=== PATIENT | female | born 2000 | race Caucasian/White ===

== ENCOUNTER 2019-07-04 18:17 | Emergency (ER) | payer MEDICAID ==
[~2019-07-04] VITALS: Ht 160 cm; Wt 62.6 kg
[2019-07-04 18:50] VITALS: BP_SYST 157
--- NOTE | 2019-07-04 18:53 | NUR ---
Patient to ER bed 05 to gown for evaluation. Side rails up.
--- NOTE | 2019-07-04 19:00 | NUR ---
Patient complains of neck pain for the last few hours. Per patient, she has hx of hyperthyroidism but has not seen her PCP. Pt denies difficulty swallowing, N/V, fever. No other injuries/complaints per patient or noted.
--- NOTE | 2019-07-04 19:05 | NUR ---
ER Dr. Mcgee at bedside examining patient.
[2019-07-04] MEDS ORDERED: KETOROLAC TROMETHAMINE 60 MG/2 ML VIAL IM ONE (19:15)
[2019-07-04 19:33] LABS: BASOPHILS % (AUTO) 0.6 % (0.0-2.0); EOSINOPHILS # (AUTO) 0.1 K/uL (0.0-0.4); EOSINOPHILS % (AUTO) 0.9 % (0.0-4.0); HEMOGLOBIN 12.1 g/dL (12.0-16.0); LYMPHOCYTES % (AUTO) 43.3 % (20.5-51.5); MEAN CORPUSCULAR HEMOGLOBIN 22 pg (27-31); MEAN CORPUSCULAR HGB CONC 32 % (32-36); MEAN CORPUSCULAR VOLUME 71 fL (79.0-98.0); MONOCYTES # (AUTO) 0.8 K/uL (0.0-1.0); MONOCYTES % (AUTO) 11.4 % (1.7-9.3); NEUTROPHILS # (AUTO) 3.1 K/uL (1.8-7.7); NEUTROPHILS % (AUTO) 43.8 % (40.0-70.0); PLATELET COUNT (AUTO) 198 K/uL (130-430); RED BLOOD CELL COUNT(AUTO) 5.38 MIL/uL (4.2-6.2); RED CELL DISTRIBUTION WIDTH 14.1 % (9.0-15.0)
[2019-07-04 19:44] LABS: ANION GAP 10 (5-15); CALCIUM 9.5 mg/dL (8.4-11.0); CHLORIDE 103 mmol/L (98-107); GLUCOSE 106 mg/dL (70-99); POTASSIUM 4.1 mmol/L (3.5-5.1); SODIUM SERUM 136 mmol/L (136-145); UREA NITROGEN, BLOOD 10 mg/dL (8-21)
[2019-07-04 19:47] LABS: GFR AFRICAN AMERICAN 361 mL/min (>90)
[2019-07-04 19:58] LABS: ALANINE AMINOTRANSFERASE 24 U/L (12-78); ALBUMIN 3.8 g/dL (3.4-4.8); ASPARTATE AMINOTRANSFERASE 24 U/L (10-37); FREE T4 (FREE THYROXINE) 6.2 ng/dl (0.8-1.5); TOTAL BILIRUBIN 0.3 mg/dL (0.0-1.0)
[2019-07-04 20:21] LABS: THYROID STIMULATING HORMONE < 0.01 uIu/mL (0.36-3.74)
[2019-07-04 21:08] VITALS: BP_SYST 135
--- NOTE | 2019-07-04 21:08 | NUR ---
Patient given written and verbal discharge instructions and verbalizes understanding. ER MD discussed with patient the results and treatment provided. Patient in stable condition. ID arm band removed. Rx of Naprosyn given. Patient educated on pain management and to follow up with PMD. Pain Scale 0. Opportunity for questions provided and answered. Medication side effect fact sheet provided.
--- NOTE | 2019-07-05 02:58 | NUR ---
Note farzanehone in EDM - 07/05/19 at 0258 by [email or web address] Patient given written and verbal discharge instructions and verbalizes understanding. ER discussed with patient the results and treatment provided. Patient in stable condition. ID arm band removed. Rx of Naprosyn given. Patient educated on pain management and to follow up with PMD. Pain Scale 0. Opportunity for questions provided and answered. Medication side effect fact sheet provided.
== END 2019-07-04 21:08 | disposition home or self-care (01) ==
LOC: SED 18:17
DX: E05.90 Thyrotoxicosis, unspecified without thyrotoxic crisis or storm (principal)
CPT/HCPCS: 36415; 76536; 80053; 84439; 84443; 85025; 96372; 99284; J1885

== ENCOUNTER 2019-09-21 17:37 | Emergency (ER) | payer MEDICAID ==
[~2019-09-21] VITALS: Ht 160 cm; Wt 65.3 kg
[2019-09-21 17:50] VITALS: BP_SYST 140
--- NOTE | 2019-09-21 18:06 | NUR ---
Placed in room 04. Placed on electronic device monitor, blood pressure machine and pulse oximeter. To gown for exam. Side rails up. Report given to SPENCER Funez.
--- NOTE | 2019-09-21 18:13 | NUR ---
Note kailee in [facility] - 09/21/19 at 1813 by [email or web address] Placed in room 04 . Placed on monitoring analyst, blood pressure machine and pulse oximeter. To gown for exam. Side rails up. Report given to Dee Dee PALMER.
--- NOTE | 2019-09-21 18:45 | NUR ---
Patient presents to ER C/O pelvic pain . Patient A&Ox4, ambulatory to ER, skin pink and warm, afebrile, pain 9/10 left side pelvic pain, denies N/V/D. Patient states pain x5days, seen at [facility] on Wednesday, no treatment plan given.
--- NOTE | 2019-09-21 19:25 | NUR ---
ER Dr. Lopez at bedside examining patient.
--- NOTE | 2019-09-21 19:30 | NUR ---
Report given to Rosalio PALMER
--- NOTE | 2019-09-21 20:00 | NUR ---
Pt provided urine sample. Dipped, Negative HCG, sent to Lab. informed.
[2019-09-21 20:07] LABS: BASOPHILS % (AUTO) 0.2 % (0.0-2.0); EOSINOPHILS % (AUTO) 0.1 % (0.0-4.0); HEMATOCRIT 36.5 % (36-48); HEMOGLOBIN 11.6 g/dL (12.0-16.0); LYMPHOCYTES # (AUTO) 2.3 K/uL (1.0-5.5); LYMPHOCYTES % (AUTO) 18.1 % (20.5-51.5); MEAN CORPUSCULAR HEMOGLOBIN 22 pg (27-31); MEAN CORPUSCULAR HGB CONC 32 % (32-36); MEAN CORPUSCULAR VOLUME 70 fL (79.0-98.0); MONOCYTES # (AUTO) 1.7 K/uL (0.0-1.0); MONOCYTES % (AUTO) 13.3 % (1.7-9.3); NEUTROPHILS # (AUTO) 8.5 K/uL (1.8-7.7); NEUTROPHILS % (AUTO) 68.3 % (40.0-70.0); PLATELET COUNT (AUTO) 295 K/uL (130-430); RED BLOOD CELL COUNT(AUTO) 5.21 MIL/uL (4.2-6.2); WHITE BLOOD COUNT (AUTO) 12.5 K/uL (4.8-10.8)
[2019-09-21 20:23] LABS: CALCIUM 9.5 mg/dL (8.4-11.0); CREATININE 0.43 mg/dL (0.55-1.30); POTASSIUM 3.7 mmol/L (3.5-5.1)
[2019-09-21 20:36] LABS: ALBUMIN 3.2 g/dL (3.4-4.8); TOTAL BILIRUBIN 0.4 mg/dL (0.0-1.0)
[2019-09-21 21:13] LABS: BILIRUBIN,URINE NEGATIVE (NEGATIVE); BLOOD, URINE NEGATIVE (NEGATIVE); COLOR,URINE YELLOW (YELLOW); GLUCOSE,URINE NEGATIVE (NEGATIVE); KETONES,URINE TRACE (NEGATIVE); LEUKOCYTE ESTERASE ,URINE TRACE (NEGATIVE); NITRITE, URINE NEGATIVE (NEGATIVE); PROTEIN URINE NEGATIVE (NEGATIVE); UROBILINOGEN,URINE 0.2 (0.2-1.0)
[2019-09-21] MEDS ORDERED: NACL 0.9% 1,000 ML IV ONE (21:15)
[2019-09-21 21:41] LABS: CLARITY/URINE HAZY (CLEAR)
--- NOTE | 2019-09-21 21:51 | NUR ---
# 20 gauge angiocath placed to LAC. Use of asceptic technique. Opsite placed over site. Blood return noted. Blood for lab drawn from site. Flushed with 10 cc of normal saline. No evidence of infiltration noted. Patient tolerated well.
[2019-09-21 22:43] LABS: BACTERIA,URINE FEW /HPF (None Seen); MUCUS,URINE 3+ /LPF (None Seen); RBC,URINE 0-3 /HPF (0-3)
[2019-09-21 23:00] VITALS: BP_SYST 133
--- NOTE | 2019-09-21 23:00 | NUR ---
Patient given written and verbal discharge instructions and verbalizes understanding. ER MD discussed with patient the results and treatment provided. Patient in stable condition. ID arm band removed. IV catheter removed intact and dressing applied, no active bleeding. Rx of Keflex and tramadol given. Patient educated on pain management and to follow up with PMD. Pain Scale 0/10. Opportunity for questions provided and answered. Medication side effect fact sheet provided.
== END 2019-09-21 23:00 | disposition home or self-care (01) ==
LOC: SED 17:37
DX: E87.1 Hypo-osmolality and hyponatremia (principal); E86.0 Dehydration; I88.9 Nonspecific lymphadenitis, unspecified; E03.9 Hypothyroidism, unspecified
CPT/HCPCS: 36415; 80053; 81000; 81025; 85025; 87086; 96360; 99283; J7030

== ENCOUNTER 2019-11-05 19:07 | Emergency (ER) | payer MEDICAID ==
[~2019-11-05] VITALS: Ht 160 cm; Wt 63.0 kg
[2019-11-05 19:07] VITALS: BP_SYST 125
[2019-11-05 20:30] LABS: STREPTOCOCCUS A SCREEN (RAPID) NEGATIVE (NEGATIVE)
[2019-11-05 20:38] LABS: INFLUENZA A&B ANTIGEN SCREEN NEGATIVE FOR A & B (NEGATIVE)
[2019-11-05] MEDS ORDERED: KETOROLAC TROMETHAMINE 30 MG VIAL IM ONE (20:45)
[2019-11-05] MEDS ORDERED: AMOXICILLIN 500 MG CAPSULE PO ONE (20:45)
[2019-11-05 21:05] VITALS: BP_SYST 125
== END 2019-11-05 21:05 | disposition home or self-care (01) ==
LOC: SED 19:07
DX: J03.90 Acute tonsillitis, unspecified (principal)
CPT/HCPCS: 86403; 86710; 87081; 96372; 99283; J1885; 36415

== ENCOUNTER 2020-07-07 17:04 | Emergency (ER) | payer MEDICAID ==
[~2020-07-07] VITALS: Ht 160 cm; Wt 68.9 kg
--- NOTE | 2020-07-07 17:14 | NUR ---
Pt brought by self, A&Ox4, pt presents to ER with sore throat and swelling, pt afebrile, skin pink and warm, cap refill <3, VSS.
--- NOTE | 2020-07-07 17:15 | NUR ---
Dr Palomares evaluating patient at bedside
[2020-07-07 17:25] VITALS: BP_SYST 153
[2020-07-07 17:43] LABS: BASOPHILS % (AUTO) 0.2 % (0.0-2.0); EOSINOPHILS # (AUTO) 0.1 K/uL (0.0-0.4); EOSINOPHILS % (AUTO) 1.2 % (0.0-4.0); HEMATOCRIT 37.5 % (36-48); HEMOGLOBIN 11.7 g/dL (12.0-16.0); LYMPHOCYTES # (AUTO) 2.6 K/uL (1.0-5.5); LYMPHOCYTES % (AUTO) 39.3 % (20.5-51.5); MEAN CORPUSCULAR HEMOGLOBIN 22 pg (27-31); MEAN CORPUSCULAR HGB CONC 31 % (32-36); MEAN CORPUSCULAR VOLUME 71 fL (79.0-98.0); MONOCYTES # (AUTO) 0.9 K/uL (0.0-1.0); NEUTROPHILS % (AUTO) 45.3 % (40.0-70.0); PLATELET COUNT (AUTO) 300 K/uL (130-430); RED BLOOD CELL COUNT(AUTO) 5.28 MIL/uL (4.2-6.2); RED CELL DISTRIBUTION WIDTH 14.1 % (9.0-15.0); WHITE BLOOD COUNT (AUTO) 6.7 K/uL (4.8-10.8)
[2020-07-07 17:54] VITALS: BP_SYST 153
[2020-07-07 17:59] LABS: ANION GAP 10 (5-15); CALCIUM 9.2 mg/dL (8.4-11.0); CHLORIDE 103 mmol/L (98-107); CREATININE 0.38 mg/dL (0.55-1.30); GLUCOSE 135 mg/dL (70-99); POTASSIUM 4.5 mmol/L (3.5-5.1); SODIUM SERUM 138 mmol/L (136-145); UREA NITROGEN, BLOOD 7 mg/dL (8-21)
[2020-07-07 18:08] LABS: GFR AFRICAN AMERICAN 272 mL/min (>90)
[2020-07-07 18:14] LABS: FREE T4 (FREE THYROXINE) 7.1 ng/dl (0.8-1.5); THYROID STIMULATING HORMONE < 0.01 uIu/mL (0.36-3.74)
[2020-07-07] MEDS ORDERED: NACL 0.9% 1,000 ML IV ONE (18:45)
--- NOTE | 2020-07-07 18:45 | NUR ---
Patient to ER bed 04 to gown for evaluation. Side rails up.
--- NOTE | 2020-07-07 18:53 | NUR ---
LABS DRAWN IN LOBBY.
--- NOTE | 2020-07-07 18:53 | NUR ---
COVID AND THROAT CULTURE DONE AND SENT TO LAB
--- NOTE | 2020-07-07 18:59 | NUR ---
PT REFUSED IV ACCESS AND FLUIDS
--- NOTE | 2020-07-07 19:22 | NUR ---
Patient does not wish to proceed with medical care recommended by DR. BRAY. Patient given information related to possible complications, up to and including , which could occur as a result of leaving hospital at this time. Patient verbalizes understanding of risks involved leaving against medical advice. Patient has signed AMA form.
== END 2020-07-07 19:22 | disposition left against medical advice (07) ==
LOC: SED 17:04
DX: J02.9 Acute pharyngitis, unspecified (principal); E03.9 Hypothyroidism, unspecified; F17.200 Nicotine dependence, unspecified, uncomplicated; Z20.828 Contact with and (suspected) exposure to other viral communicable diseases
CPT/HCPCS: 36415; 80048; 81025; 84439; 84443; 85025; 86403; 87081; 99283; C9803; U0003

== ENCOUNTER 2021-06-15 08:01 | Emergency (ER) | payer MEDICAID ==
[~2021-06-15] VITALS: Ht 160 cm; Wt 72.6 kg
[2021-06-15 08:27] VITALS: BP_SYST 133
--- NOTE | 2021-06-15 08:32 | NUR ---
Patient to ER bed TENT1 to gown for evaluation. Side rails up.
--- NOTE | 2021-06-15 08:33 | NUR ---
ER at bedside examining patient.
[2021-06-15] MEDS ORDERED: ACET-2634 PO (08:38)
--- NOTE | 2021-06-15 08:40 | NUR ---
Pt c/o sorethroat x 3days.Pt has no acute resp distress noted.Samreen and influenza collected and sent.
--- NOTE | 2021-06-15 09:45 | NUR ---
Patient given written and verbal discharge instructions and verbalizes understanding. ER MD discussed with patient the results and treatment provided. Patient in stable condition. ID arm band removed. no Rx of given. Patient educated on pain management and to follow up with PMD. Pain Scale 0. Opportunity for questions provided and answered. Medication side effect fact sheet provided.
== END 2021-06-15 09:45 | disposition home or self-care (01) ==
LOC: SED 08:01
DX: U07.1 COVID-19 (principal); J06.9 Acute upper respiratory infection, unspecified; Z79.899 Other long term (current) drug therapy
CPT/HCPCS: 36415; 86710; 99283

== ENCOUNTER 2021-10-24 15:03 | Emergency (ER) | payer MEDICAID ==
[~2021-10-24] VITALS: Ht 162.6 cm; Wt 81.6 kg
[~2021-10-24 15:03] MED LIST: ACET-2634 PO
[2021-10-24 15:15] VITALS: BP_SYST 118
[2021-10-24] MEDS ORDERED: cefOXitin SODIUM 2 GM in D5W 100 ML IV ONE (15:15)
[2021-10-24] MEDS ORDERED: NACL 0.9% 1,000 ML IV ONE (15:15)
[2021-10-24 16:12] LABS: BILIRUBIN,URINE NEGATIVE (NEGATIVE); BLOOD, URINE NEGATIVE (NEGATIVE); CLARITY/URINE CLEAR (CLEAR); COLOR,URINE YELLOW (YELLOW); GLUCOSE,URINE NEGATIVE (NEGATIVE); KETONES,URINE NEGATIVE (NEGATIVE); LEUKOCYTE ESTERASE ,URINE NEGATIVE (NEGATIVE); NITRITE, URINE NEGATIVE (NEGATIVE); PROTEIN URINE NEGATIVE (NEGATIVE); UROBILINOGEN,URINE 0.2 (0.2-1.0)
[2021-10-24 16:28] LABS: HEMOGLOBIN 13.5 g/dL (12.0-16.0)
[2021-10-24 16:33] LABS: BASOPHILS % (AUTO) 0.6 % (0.0-2.0); EOSINOPHILS # (AUTO) 0.9 K/uL (0.0-0.4); EOSINOPHILS % (AUTO) 15.4 % (0.0-4.0); HEMATOCRIT 41.2 % (36-48); LYMPHOCYTES # (AUTO) 1.5 K/uL (1.0-5.5); LYMPHOCYTES % (AUTO) 25.9 % (20.5-51.5); MEAN CORPUSCULAR HEMOGLOBIN 25 pg (27-31); MEAN CORPUSCULAR HGB CONC 33 % (32-36); MEAN CORPUSCULAR VOLUME 76 fL (79.0-98.0); MONOCYTES # (AUTO) 0.3 K/uL (0.0-1.0); NEUTROPHILS % (AUTO) 52.1 % (40.0-70.0); PLATELET COUNT (AUTO) 324 K/uL (130-430); RED BLOOD CELL COUNT(AUTO) 5.43 MIL/uL (4.2-6.2); RED CELL DISTRIBUTION WIDTH 18.4 % (9.0-15.0); WHITE BLOOD COUNT (AUTO) 5.7 K/uL (4.8-10.8)
[2021-10-24 16:39] LABS: CALCIUM 9.1 mg/dL (8.4-11.0); CREATININE 0.88 mg/dL (0.55-1.30); POTASSIUM 3.7 mmol/L (3.5-5.1)
[2021-10-24 16:45] LABS: TOTAL BILIRUBIN 0.2 mg/dL (0.0-1.0)
[2021-10-24 17:38] LABS: THYROID STIMULATING HORMONE 1.41 uIu/mL (0.36-3.74)
[2021-10-24 18:17] VITALS: BP_SYST 123
--- NOTE | 2021-10-24 18:18 | NUR ---
Patient given written and verbal discharge instructions and verbalizes understanding. KYLE CHU MD discussed with patient the results and treatment provided. Patient in stable condition. ID arm band removed. IV catheter removed intact and dressing applied, no active bleeding. Patient educated on pain management and to follow up with PMD. Pain Scale 0. Opportunity for questions provided and answered. Medication side effect fact sheet provided.
== END 2021-10-24 18:18 | disposition home or self-care (01) ==
LOC: SED 15:03
DX: R60.9 Edema, unspecified (principal); E07.9 Disorder of thyroid, unspecified; F12.90 Cannabis use, unspecified, uncomplicated; Z90.89 Acquired absence of other organs
CPT/HCPCS: 36415; 80053; 81003; 84439; 84443; 85025; 99283

== ENCOUNTER 2021-11-26 02:26 | Emergency (ER) | payer MEDICAID ==
[~2021-11-26] VITALS: Ht 160 cm; Wt 90.7 kg
[2021-11-26 02:35] VITALS: BP_SYST 116
--- NOTE | 2021-11-26 03:02 | NUR ---
ER at bedside examining patient.
[2021-11-26 03:33] LABS: BASOPHILS % (AUTO) 0.8 % (0.0-2.0); EOSINOPHILS # (AUTO) 0.4 K/uL (0.0-0.4); EOSINOPHILS % (AUTO) 8.1 % (0.0-4.0); HEMATOCRIT 39.9 % (36-48); HEMOGLOBIN 13.1 g/dL (12.0-16.0); LYMPHOCYTES # (AUTO) 1.8 K/uL (1.0-5.5); LYMPHOCYTES % (AUTO) 34.5 % (20.5-51.5); MEAN CORPUSCULAR HEMOGLOBIN 26 pg (27-31); MEAN CORPUSCULAR HGB CONC 33 % (32-36); MEAN CORPUSCULAR VOLUME 79 fL (79.0-98.0); MONOCYTES # (AUTO) 0.4 K/uL (0.0-1.0); MONOCYTES % (AUTO) 8.4 % (1.7-9.3); NEUTROPHILS # (AUTO) 2.5 K/uL (1.8-7.7); NEUTROPHILS % (AUTO) 48.2 % (40.0-70.0); PLATELET COUNT (AUTO) 305 K/uL (130-430); RED BLOOD CELL COUNT(AUTO) 5.06 MIL/uL (4.2-6.2); RED CELL DISTRIBUTION WIDTH 20.3 % (9.0-15.0); WHITE BLOOD COUNT (AUTO) 5.1 K/uL (4.8-10.8)
--- NOTE | 2021-11-26 04:23 | NUR ---
Patient to ER bed 7 to gown for evaluation. Side rails up. Report given to Katya PALMER.
[2021-11-26 04:31] LABS: CALCIUM 9.9 mg/dL (8.4-11.0); CREATININE 1.12 mg/dL (0.55-1.30); POTASSIUM 3.7 mmol/L (3.5-5.1)
[2021-11-26 04:37] LABS: ALBUMIN 4.4 g/dL (3.4-4.8); TOTAL BILIRUBIN 0.2 mg/dL (0.0-1.0)
--- NOTE | 2021-11-26 04:51 | NUR ---
Pt brought self in from home due to swelling to BLE and BUE x1 month. No signs of respiratory distress. Reports hx of hyperthyroidism. Denies any other symptoms. No acute signs of distress. Addendum: 11/26/21 at 0520 by [email or web address] SPENCER Aldana
[2021-11-26] MEDS ORDERED: SPIR25TA6 PO (05:42)
[2021-11-26 05:45] VITALS: BP_SYST 110
--- NOTE | 2021-11-26 05:45 | NUR ---
Patient given written and verbal discharge instructions and verbalizes understanding. ER MD discussed with patient the results and treatment provided. Patient in stable condition. ID arm band removed. Rx of spironolactone sent to pharmacy of choice. Patient educated on pain diagnosis and to follow up with PMD. Pain Scale 0/10. Opportunity for questions provided and answered. Medication side effect fact sheet provided.
== END 2021-11-26 05:45 | disposition home or self-care (01) ==
LOC: SED 02:26
DX: E28.2 Polycystic ovarian syndrome (principal); Z79.899 Other long term (current) drug therapy
CPT/HCPCS: 36415; 71045; 76830-TC; 76857; 80053; 83880; 85025; 99285

== ENCOUNTER 2022-06-30 14:26 | Emergency (ER) | payer MEDICAID ==
[~2022-06-30] VITALS: Ht 160 cm; Wt 90.7 kg
[~2022-06-30 14:26] MED LIST changes: +SPIR25TA6 PO
[2022-06-30 14:53] VITALS: BP_SYST 120
--- NOTE | 2022-06-30 14:55 | NUR ---
Patient triaged and placed in waiting room. VSS and patient appears in no acute distress at this time. Accompanied by SELF, awaiting available bed, and MD notified of need for MSE.
--- NOTE | 2022-06-30 16:00 | NUR ---
ER DR. STRAUSS EXAMINING PT IN TRIAGE
[2022-06-30 17:05] LABS: BASOPHILS # (AUTO) 0.1 K/uL (0.0-0.2); EOSINOPHILS # (AUTO) 0.5 K/uL (0.0-0.4); EOSINOPHILS % (AUTO) 7.1 % (0.0-4.0); HEMATOCRIT 37.4 % (36-48); HEMOGLOBIN 12.5 g/dL (12.0-16.0); LYMPHOCYTES # (AUTO) 1.9 K/uL (1.0-5.5); LYMPHOCYTES % (AUTO) 28.9 % (20.5-51.5); MEAN CORPUSCULAR HEMOGLOBIN 27 pg (27-31); MEAN CORPUSCULAR HGB CONC 34 % (32-36); MEAN CORPUSCULAR VOLUME 80 fL (79.0-98.0); MONOCYTES # (AUTO) 0.5 K/uL (0.0-1.0); NEUTROPHILS # (AUTO) 3.6 K/uL (1.8-7.7); PLATELET COUNT (AUTO) 292 K/uL (130-430); RED BLOOD CELL COUNT(AUTO) 4.69 MIL/uL (4.2-6.2); RED CELL DISTRIBUTION WIDTH 15.9 % (9.0-15.0); WHITE BLOOD COUNT (AUTO) 6.5 K/uL (4.8-10.8)
[2022-06-30 17:10] LABS: CREATININE 0.83 mg/dL (0.55-1.30)
[2022-06-30 17:22] LABS: ALBUMIN 4.1 g/dL (3.4-4.8); CALCIUM 9.2 mg/dL (8.4-11.0); TOTAL BILIRUBIN 0.2 mg/dL (0.0-1.0)
[2022-06-30 18:47] VITALS: BP_SYST 117
--- NOTE | 2022-06-30 18:47 | NUR ---
Patient given written and verbal discharge instructions and verbalizes understanding. ER MD discussed with patient the results and treatment provided. Patient in stable condition. ID arm band removed. NO Rx given. Patient educated on pain management and to follow up with PMD. Pain Scale 0/10. Opportunity for questions provided and answered. Medication side effect fact sheet provided.
== END 2022-06-30 18:47 | disposition home or self-care (01) ==
LOC: SED 14:26
DX: O26.891 Other specified pregnancy related conditions, first trimester (principal); Z3A.01 Less than 8 weeks gestation of pregnancy; Z79.899 Other long term (current) drug therapy
CPT/HCPCS: 36415; 76801; 76817; 80053; 81002; 81025; 84702; 85025; 99284

== ENCOUNTER 2022-07-22 08:41 | Emergency (ER) | payer MEDICAID ==
[~2022-07-22] VITALS: Ht 160 cm; Wt 86.2 kg
[2022-07-22 08:45] VITALS: BP_SYST 119
[2022-07-22] MEDS ORDERED: D-ME118S48 PO (09:26)
== END 2022-07-22 09:44 | disposition home or self-care (01) ==
LOC: SED 08:41
DX: J06.9 Acute upper respiratory infection, unspecified (principal); R05.9 Cough, unspecified; R09.81 Nasal congestion; M79.10 Myalgia, unspecified site; Z79.899 Other long term (current) drug therapy; Z20.822 Contact with and (suspected) exposure to COVID-19
CPT/HCPCS: 36415; 99283

== ENCOUNTER 2023-06-20 08:22 | Emergency (ER) | payer MEDICAID ==
[~2023-06-20] VITALS: Ht 160 cm; Wt 76.2 kg
[~2023-06-20 08:22] MED LIST changes: +BROM118S61 PO
[2023-06-20 08:38] VITALS: BP_SYST 138; PULSE 70; RESP 20; TEMP 98.3; O2SAT 98
[2023-06-20] MEDS ORDERED: KETOROLAC TROMETHAMINE 15 MG VIAL IM ONE (09:00)
[2023-06-20] MEDS ORDERED: methocarbamoL 500 MG TABLET PO ONE (09:00)
[2023-06-20] MEDS ORDERED: LIDOCAINE PATCH 5% 1 EA TP ONE (09:00)
[2023-06-20 09:18] LABS: BILIRUBIN,URINE NEGATIVE (NEGATIVE); BLOOD, URINE NEGATIVE (NEGATIVE); CLARITY/URINE CLEAR (CLEAR); COLOR,URINE YELLOW (YELLOW); GLUCOSE,URINE NEGATIVE (NEGATIVE); KETONES,URINE NEGATIVE (NEGATIVE); LEUKOCYTE ESTERASE ,URINE NEGATIVE (NEGATIVE); NITRITE, URINE NEGATIVE (NEGATIVE); PH,URINE 6.5 (5.0-8.0); PROTEIN URINE NEGATIVE (NEGATIVE)
[2023-06-20] MEDS ORDERED: IBUP-1969 PO (10:04)
[2023-06-20] MEDS ORDERED: LIDO700A30 TP (10:04)
[2023-06-20 10:13] VITALS: BP_SYST 138; PULSE 70; RESP 20; TEMP 98.3; O2SAT 98
== END 2023-06-20 10:14 | disposition home or self-care (01) ==
LOC: SED 08:22
DX: S29.012A Strain of muscle and tendon of back wall of thorax, initial encounter (principal); Z79.899 Other long term (current) drug therapy; X50.1XXA Overexertion from prolonged static or awkward postures, initial encounter; Y93.89 Activity, other specified; Y92.89 Other specified places as the place of occurrence of the external cause; Y99.8 Other external cause status
CPT/HCPCS: 99284; 71045; 81001; 81025; 81003; J1885

== ENCOUNTER 2023-07-16 10:02 | Emergency (ER) | payer MEDICAID ==
[~2023-07-16] VITALS: Ht 160 cm; Wt 79.8 kg
[~2023-07-16 10:02] MED LIST changes: +IBUP-1969 PO; +LIDO700A30 TP
[2023-07-16 10:33] VITALS: BP_SYST 104; PULSE 100; RESP 22; TEMP 98.2; O2SAT 98
[2023-07-16] MEDS ORDERED: IBUP-1971 PO (10:52)
[2023-07-16 11:13] LABS: STREPTOCOCCUS A SCREEN (RAPID) NEGATIVE (NEGATIVE)
[2023-07-16 11:18] LABS: INFLUENZA TYPE A Negative (NEGATIVE)
[2023-07-16 11:19] LABS: INFLUENZA TYPE B POSITIVE (NEGATIVE)
[2023-07-16 12:00] VITALS: BP_SYST 104; PULSE 100; RESP 22; TEMP 98.2; O2SAT 98
[2023-07-16] MEDS ORDERED: OSEL75CA PO (12:05)
== END 2023-07-16 12:00 | disposition home or self-care (01) ==
LOC: SED 10:02
DX: J11.1 Influenza due to unidentified influenza virus with other respiratory manifestations (principal); Z79.899 Other long term (current) drug therapy; Z20.822 Contact with and (suspected) exposure to COVID-19
CPT/HCPCS: 36415; 86403; 87081; 99283

== ENCOUNTER 2023-08-27 10:27 | Emergency (ER) | payer MEDICAID, OTHER ==
[~2023-08-27] VITALS: Ht 162.6 cm; Wt 76.2 kg
[~2023-08-27 10:27] MED LIST changes: +IBUP-1971 PO; +OSEL75CA PO
[2023-08-27 10:29] VITALS: BP_SYST 134; PULSE 103; RESP 18; TEMP 98.7; O2SAT 99
[2023-08-27 11:16] LABS: BASOPHILS % (AUTO) 0.6 % (0.0-2.0); EOSINOPHILS # (AUTO) 0.2 K/uL (0.0-0.4); EOSINOPHILS % (AUTO) 4.1 % (0.0-4.0); HEMATOCRIT 36.8 % (36-48); HEMOGLOBIN 12.1 g/dL (12.0-16.0); LYMPHOCYTES # (AUTO) 1.3 K/uL (1.0-5.5); LYMPHOCYTES % (AUTO) 21.9 % (20.5-51.5); MEAN CORPUSCULAR HEMOGLOBIN 25 pg (27-31); MEAN CORPUSCULAR HGB CONC 33 % (32-36); MEAN CORPUSCULAR VOLUME 75 fL (79.0-98.0); MONOCYTES # (AUTO) 0.5 K/uL (0.0-1.0); NEUTROPHILS % (AUTO) 65.4 % (40.0-70.0); PLATELET COUNT (AUTO) 334 K/uL (130-430); RED CELL DISTRIBUTION WIDTH 15.3 % (9.0-15.0); WHITE BLOOD COUNT (AUTO) 6.1 K/uL (4.8-10.8)
[2023-08-27 11:19] LABS: ANION GAP 8 (5-15); CARBON DIOXIDE 25 mmol/L (23-29); CHLORIDE 109 mmol/L (98-107); GFR AFRICAN AMERICAN 131 mL/min (>90); GFR NON AFRICAN-AMERICAN 108 mL/min (>90); GLUCOSE 93 mg/dL (74-106); POTASSIUM 4.3 mmol/L (3.5-5.1); SODIUM SERUM 142 mmol/L (136-145); UREA NITROGEN, BLOOD 12 mg/dL (8-21)
[2023-08-27 11:33] LABS: THYROID STIMULATING HORMONE 0.98 uIu/mL (0.34-4.82)
[2023-08-27 13:40] VITALS: BP_SYST 134; PULSE 103; RESP 18; TEMP 98.7; O2SAT 99
== END 2023-08-27 13:20 | disposition home or self-care (01) ==
LOC: SED 10:27
DX: R00.2 Palpitations (principal); Z79.899 Other long term (current) drug therapy
CPT/HCPCS: 36415; 80048; 84443; 84484; 85025; 93005; 99284

== ENCOUNTER 2023-10-23 09:13 | Emergency (ER) | payer OTHER ==
[~2023-10-23] VITALS: Ht 162.6 cm; Wt 77.1 kg
[2023-10-23 09:15] VITALS: BP_SYST 109; PULSE 64; RESP 17; TEMP 97.1; O2SAT 99
[2023-10-23 10:21] LABS: BILIRUBIN,URINE NEGATIVE (NEGATIVE); BLOOD, URINE NEGATIVE (NEGATIVE); CLARITY/URINE CLEAR (CLEAR); COLOR,URINE YELLOW (YELLOW); GLUCOSE,URINE NEGATIVE (NEGATIVE); KETONES,URINE TRACE (NEGATIVE); LEUKOCYTE ESTERASE ,URINE 1+ (NEGATIVE); NITRITE, URINE NEGATIVE (NEGATIVE); PH,URINE 6.5 (5.0-8.0); PROTEIN URINE NEGATIVE (NEGATIVE); UROBILINOGEN,URINE 0.2 (0.2-1.0)
[2023-10-23 10:41] LABS: BACTERIA,URINE None Seen /HPF (None Seen); RBC,URINE 0-3 /HPF (0-3)
[2023-10-23 10:59] LABS: BASOPHILS % (AUTO) 0.6 % (0.0-2.0); EOSINOPHILS # (AUTO) 0.2 K/uL (0.0-0.4); EOSINOPHILS % (AUTO) 3.1 % (0.0-4.0); HEMATOCRIT 37.2 % (36-48); HEMOGLOBIN 12.1 g/dL (12.0-16.0); LYMPHOCYTES # (AUTO) 1.5 K/uL (1.0-5.5); LYMPHOCYTES % (AUTO) 21.5 % (20.5-51.5); MEAN CORPUSCULAR HEMOGLOBIN 25 pg (27-31); MEAN CORPUSCULAR HGB CONC 33 % (32-36); MEAN CORPUSCULAR VOLUME 76 fL (79.0-98.0); MONOCYTES # (AUTO) 0.7 K/uL (0.0-1.0); MONOCYTES % (AUTO) 9.4 % (1.7-9.3); NEUTROPHILS # (AUTO) 4.6 K/uL (1.8-7.7); NEUTROPHILS % (AUTO) 65.4 % (40.0-70.0); PLATELET COUNT (AUTO) 320 K/uL (130-430); RED BLOOD CELL COUNT(AUTO) 4.88 MIL/uL (4.2-6.2)
[2023-10-23 11:16] LABS: SERUM HCG (QUALITATIVE) NEGATIVE (NEGATIVE)
[2023-10-23 11:23] LABS: CALCIUM 8.8 mg/dL (8.4-11.0); CREATININE 0.81 mg/dL (0.55-1.30); POTASSIUM 4.3 mmol/L (3.5-5.1)
[2023-10-23] MEDS ORDERED: NITR-85 PO (12:15)
[2023-10-23 12:26] VITALS: BP_SYST 109; PULSE 64; RESP 17; TEMP 97.1; O2SAT 99
== END 2023-10-23 12:25 | disposition home or self-care (01) ==
LOC: SED 09:13
DX: R10.2 Pelvic and perineal pain (principal); R30.0 Dysuria; Z79.899 Other long term (current) drug therapy
CPT/HCPCS: 36415; 80048; 81000; 81001; 81015; 81025; 82150; 83690; 84703; 85025; 99284

== ENCOUNTER 2023-11-29 09:15 | Emergency (ER) | payer OTHER ==
[~2023-11-29] VITALS: Ht 160 cm; Wt 77.1 kg
[~2023-11-29 09:15] MED LIST changes: +NITR-85 PO
[2023-11-29 09:19] VITALS: BP_SYST 156; PULSE 62; RESP 18; TEMP 97.6; O2SAT 97
[2023-11-29] MEDS: KETOROLAC TROMETHAMINE 30 MG VIAL IM ONE (09:48)
[2023-11-29 09:55] LABS: BILIRUBIN,URINE NEGATIVE (NEGATIVE); BLOOD, URINE NEGATIVE (NEGATIVE); CLARITY/URINE CLEAR (CLEAR); COLOR,URINE YELLOW (YELLOW); GLUCOSE,URINE NEGATIVE (NEGATIVE); KETONES,URINE NEGATIVE (NEGATIVE); LEUKOCYTE ESTERASE ,URINE NEGATIVE (NEGATIVE); NITRITE, URINE NEGATIVE (NEGATIVE); PROTEIN URINE NEGATIVE (NEGATIVE); UROBILINOGEN,URINE 0.2 (0.2-1.0)
[2023-11-29 09:57] LABS: BASOPHILS # (AUTO) 0.1 K/uL (0.0-0.2); BASOPHILS % (AUTO) 0.8 % (0.0-2.0); EOSINOPHILS # (AUTO) 0.2 K/uL (0.0-0.4); EOSINOPHILS % (AUTO) 3.6 % (0.0-4.0); HEMATOCRIT 36.7 % (36-48); HEMOGLOBIN 11.9 g/dL (12.0-16.0); LYMPHOCYTES # (AUTO) 1.7 K/uL (1.0-5.5); LYMPHOCYTES % (AUTO) 26.1 % (20.5-51.5); MEAN CORPUSCULAR HEMOGLOBIN 25 pg (27-31); MEAN CORPUSCULAR HGB CONC 32 % (32-36); MEAN CORPUSCULAR VOLUME 77 fL (79.0-98.0); MONOCYTES # (AUTO) 0.6 K/uL (0.0-1.0); MONOCYTES % (AUTO) 9.5 % (1.7-9.3); NEUTROPHILS # (AUTO) 3.9 K/uL (1.8-7.7); PLATELET COUNT (AUTO) 294 K/uL (130-430); RED BLOOD CELL COUNT(AUTO) 4.79 MIL/uL (4.2-6.2); RED CELL DISTRIBUTION WIDTH 15.5 % (9.0-15.0); WHITE BLOOD COUNT (AUTO) 6.4 K/uL (4.8-10.8)
[2023-11-29 10:16] LABS: CALCIUM 8.7 mg/dL (8.4-11.0); CREATININE 0.76 mg/dL (0.55-1.30); POTASSIUM 4.1 mmol/L (3.5-5.1)
[2023-11-29 12:16] VITALS: BP_SYST 148; PULSE 65; RESP 17; TEMP 97.6; O2SAT 98
== END 2023-11-29 12:18 | disposition home or self-care (01) ==
LOC: SED 09:15
DX: R10.2 Pelvic and perineal pain (principal); Z79.899 Other long term (current) drug therapy
CPT/HCPCS: 99285; 74176; 80048; 81001; 85025; 36415; 96372; 81003; J1885

== ENCOUNTER 2024-03-19 20:13 | Emergency (ER) | payer MEDICAID, OTHER ==
[~2024-03-19] VITALS: Ht 162.6 cm; Wt 78.0 kg
[2024-03-19 20:20] VITALS: BP_SYST 122; PULSE 90; RESP 20; TEMP 100; O2SAT 98
[2024-03-19 20:50] LABS: BASOPHILS # (AUTO) 0.1 K/uL (0.0-0.2); BASOPHILS % (AUTO) 0.7 % (0.0-2.0); EOSINOPHILS # (AUTO) 0.3 K/uL (0.0-0.4); EOSINOPHILS % (AUTO) 2.8 % (0.0-4.0); HEMATOCRIT 33.4 % (36-48); HEMOGLOBIN 10.9 g/dL (12.0-16.0); LYMPHOCYTES # (AUTO) 1.6 K/uL (1.0-5.5); LYMPHOCYTES % (AUTO) 18.2 % (20.5-51.5); MEAN CORPUSCULAR HEMOGLOBIN 25 pg (27-31); MEAN CORPUSCULAR HGB CONC 33 % (32-36); MEAN CORPUSCULAR VOLUME 78 fL (79.0-98.0); MONOCYTES % (AUTO) 11.1 % (1.7-9.3); NEUTROPHILS # (AUTO) 5.9 K/uL (1.8-7.7); NEUTROPHILS % (AUTO) 67.2 % (40.0-70.0); PLATELET COUNT (AUTO) 306 K/uL (130-430); RED BLOOD CELL COUNT(AUTO) 4.31 MIL/uL (4.2-6.2); RED CELL DISTRIBUTION WIDTH 14.7 % (9.0-15.0); WHITE BLOOD COUNT (AUTO) 8.8 K/uL (4.8-10.8)
[2024-03-19 20:52] LABS: ERYTHROCYTE SEDIMENTATION RATE 61 MM/HR (0-20)
[2024-03-19 20:58] LABS: INFLUENZA TYPE A Negative (NEGATIVE); INFLUENZA TYPE B NEGATIVE (NEGATIVE)
[2024-03-19] MEDS: ACETAMINOPHEN 500 MG TABLET PO ONE (21:06)
[2024-03-19 21:13] LABS: CALCIUM 8.9 mg/dL (8.4-11.0); CREATININE 0.77 mg/dL (0.55-1.30); POTASSIUM 3.5 mmol/L (3.5-5.1); THYROID STIMULATING HORMONE 5.65 uIu/mL (0.34-4.82)
[2024-03-19] MEDS ORDERED: NALOXONE HCL 0.4 MG/ML AMP (NARCAN) IVP PRN (22:00)
[2024-03-19] MEDS ORDERED: AUG875 PO (22:06)
[2024-03-19] MEDS ORDERED: ACET1TAB93 PO (22:06)
[2024-03-19] MEDS: AMOXICILLIN/POTASSIUM CLAV 875 MG TABLET PO ONE (22:24)
[2024-03-19] MEDS: ACETAMINOPHEN/CODEINE 300 MG-30 MG TABLET PO ONE (22:25)
[2024-03-19 22:43] VITALS: BP_SYST 117; PULSE 65; RESP 18; TEMP 97.9; O2SAT 97
== END 2024-03-19 22:43 | disposition home or self-care (01) ==
LOC: SED 20:13
DX: J01.80 Other acute sinusitis (principal); G43.909 Migraine, unspecified, not intractable, without status migrainosus; Z20.822 Contact with and (suspected) exposure to COVID-19; E03.9 Hypothyroidism, unspecified; Z79.899 Other long term (current) drug therapy; Z79.2 Long term (current) use of antibiotics
CPT/HCPCS: 36415; 70450-TC; 80048; 81025; 84443; 85025; 85651; 99284